=== PATIENT | male | born 1930 | race Caucasian/White ===

== ENCOUNTER 2016-12-24 06:48 | Inpatient (IN) | payer MEDICARE, OTHER ==
[~2016-12-24] VITALS: Ht 188 cm; Wt 86.5 kg
[~2016-12-24 06:48] MED LIST: AMIO400T4 PO; CEFD300C37 PO; LEVO25TA4 PO; MAGN400T26 PO; METO25TA35 PO; METO50TA82 PO; OXYC1TAB7 PO; POLY454P3 PO; WARF5TAB7 PO
[2016-12-24] MEDS ORDERED: SODIUM CHLORIDE 0.9% 1,000ML IVBOLUS ONE (07:30)
[2016-12-24] MEDS ORDERED: SODIUM CHLORIDE FLUSH 10ML SYR IVF ONE (07:30)
[2016-12-24 07:38] LABS: HEMATOCRIT 47.8 % (39.2-51.8); HEMOGLOBIN 16.2 g/dL (13.7-18.0); WHITE BLOOD COUNT 10.9 x10^3/uL (3.4-10)
[2016-12-24 07:52] LABS: ASPARTATE AMINO TRANSFERASE 21 U/L (15-37); BLOOD UREA NITROGEN 23 mg/dL (7-18)
[2016-12-24 07:58] LABS: IS PT STATUS REG ER OR PRE ER? YES
[2016-12-24] MEDS ORDERED: FUROSEMIDE 20 MG/2 ML IV ONE (08:30)
[2016-12-24] MEDS ORDERED: FUROSEMIDE 20 MG/2 ML ONE (08:38)
[2016-12-24 09:10] LABS: PATH.CAST-FLAG NOT PRESENT; SPERM-FLAG NOT PRESENT; SRC-FLAG NOT PRESENT; XTAL-FLAG NOT PRESENT; YLC-FLAG NOT PRESENT
[2016-12-24 10:52] VITALS: BP 118/80
[2016-12-24] MEDS ORDERED: POLYETHYLENE GLYCOL 17 GM PACKET PO PRN (11:00)
[2016-12-24] MEDS ORDERED: GUAIFENESIN/DM 200-20MG, 10ML UDC PO PRN (11:00)
[2016-12-24] MEDS ORDERED: ONDANSETRON 2MG/ML, 2ML IVPush PRN (11:00)
[2016-12-24] MEDS: SODIUM CHLORIDE FLUSH 10ML SYR IVF SCH (11:27)
[2016-12-24 14:24] VITALS: BP 119/72
[2016-12-24 16:03] LABS: IS PT STATUS REG ER OR PRE ER? NO
[2016-12-24 19:26] VITALS: BP 133/83
[2016-12-24] MEDS: MAGNESIUM OXIDE 400 MG TABLET PO SCH (21:01)
[2016-12-24] MEDS: AMIODARONE 200 MG TABLET PO SCH (21:01)
[2016-12-24] MEDS: METOPROLOL TARTRATE 25 MG TABLET PO SCH (21:01)
[2016-12-24 21:32] LABS: IS PT STATUS REG ER OR PRE ER? NO
[2016-12-24 21:44] LABS: RAPID INFLUENZA A Negative (Negative); RAPID INFLUENZA B Negative (Negative)
[2016-12-25 01:17] VITALS: BP 138/97
[2016-12-25 04:40] VITALS: BP 116/78
[2016-12-25 06:30] LABS: BLOOD UREA NITROGEN 23 mg/dL (7-18)
[2016-12-25] MEDS: MAGNESIUM OXIDE 400 MG TABLET PO SCH ×2 (08:35→22:10)
[2016-12-25] MEDS: SODIUM CHLORIDE FLUSH 10ML SYR IVF SCH ×2 (08:35→22:10)
[2016-12-25] MEDS: AMIODARONE 200 MG TABLET PO SCH ×2 (08:35→22:09)
[2016-12-25] MEDS: LEVOTHYROXINE 25 MCG TABLET PO SCH (08:35)
[2016-12-25] MEDS: METOPROLOL TARTRATE 25 MG TABLET PO SCH ×2 (08:35→22:10)
[2016-12-25 08:38] VITALS: BP 104/72
[2016-12-25 14:28] VITALS: BP 105/63
[2016-12-25 18:58] VITALS: BP 104/69
[2016-12-25 22:05] VITALS: BP 115/84
[2016-12-26 01:24] VITALS: BP 112/77
[2016-12-26 08:45] VITALS: BP 118/85
[2016-12-26] MEDS: METOPROLOL SUCCINATE 50 MG TAB.ER.24H PO SCH ×2 (09:29→20:13)
[2016-12-26] MEDS: FUROSEMIDE 20 MG TABLET PO SCH (09:29)
[2016-12-26] MEDS: LEVOTHYROXINE 25 MCG TABLET PO SCH (09:29)
[2016-12-26] MEDS: MAGNESIUM OXIDE 400 MG TABLET PO SCH ×2 (09:29→20:13)
[2016-12-26] MEDS: SPIRONOLACTONE 25 MG TABLET PO SCH (09:29)
[2016-12-26] MEDS: SODIUM CHLORIDE FLUSH 10ML SYR IVF SCH ×2 (09:30→20:10)
[2016-12-26 14:10] VITALS: BP 103/72
[2016-12-26 20:00] VITALS: BP 115/79
[2016-12-27 01:40] VITALS: BP 101/70
[2016-12-27 05:50] LABS: BLOOD UREA NITROGEN 23 mg/dL (7-18)
[2016-12-27 07:36] VITALS: BP 113/83
[2016-12-27] MEDS ORDERED: CAPTOPRIL 12.5 MG TABLET PO SCH (09:00)
[2016-12-27] MEDS: SODIUM CHLORIDE FLUSH 10ML SYR IVF SCH (09:49)
[2016-12-27] MEDS: FUROSEMIDE 20 MG TABLET PO SCH (09:51)
[2016-12-27] MEDS: LEVOTHYROXINE 25 MCG TABLET PO SCH (09:51)
[2016-12-27] MEDS: MAGNESIUM OXIDE 400 MG TABLET PO SCH (09:51)
[2016-12-27] MEDS: SPIRONOLACTONE 25 MG TABLET PO SCH (09:51)
[2016-12-27] MEDS: METOPROLOL SUCCINATE 50 MG TAB.ER.24H PO SCH (09:51)
[2016-12-27] MEDS ORDERED: FURO20TA3 PO (10:22)
[2016-12-27] MEDS ORDERED: SPIR25TA PO (10:22)
[2016-12-27] MEDS ORDERED: METO-93 PO (10:22)
[2016-12-27] MEDS ORDERED: CAPT12.52 PO (10:22)
== END 2016-12-27 12:00 | disposition home or self-care (01) | DRG 308 ==
LOC: ED 08:44 → EDIP 08:45 → ED 08:55 → 5SO 09:26 → 4EST 12-25 04:35
PROVIDERS: ADMIT Hospitalist; ATTEND Hospitalist
DX: I48.0 Paroxysmal atrial fibrillation (principal); I50.21 Acute systolic (congestive) heart failure; D68.69 Other thrombophilia; D68.32 Hemorrhagic disorder due to extrinsic circulating anticoagulants; I42.9 Cardiomyopathy, unspecified; J44.9 Chronic obstructive pulmonary disease, unspecified; I11.0 Hypertensive heart disease with heart failure; E03.9 Hypothyroidism, unspecified; E78.00 Pure hypercholesterolemia, unspecified; I25.10 Atherosclerotic heart disease of native coronary artery without angina pectoris; I44.7 Left bundle-branch block, unspecified; T45.515A Adverse effect of anticoagulants, initial encounter; I25.2 Old myocardial infarction; Z79.01 Long term (current) use of anticoagulants; Z86.79 Personal history of other diseases of the circulatory system; Z87.891 Personal history of nicotine dependence; Y92.89 Other specified places as the place of occurrence of the external cause
CPT/HCPCS: 36415; 71010; 80048; 80053; 81001; 83605; 83735; 83880; 84145; 84439; 84443; 84484; 85025; 85379; 85610; 85730; 87040; 87400; 93005; 93306; 96361; 96374; J1940; J7030